=== PATIENT | female | born 1970 | race Caucasian/White ===

== ENCOUNTER → 2017-01-30 | Outpatient (CLI) | payer OTHER ==
--- NOTE | ~2017-01-30 | MR17 ---
[facility] A Service of [facility] & [facility] RADIOLOGY TEXT RESULTS PATIENT: KYLE DENG LOCATION: [facility] : 71 UNIT #: [id number] AGE: [address]: REANNA WHATLEY SEX: F ORDER DR: [id number] [facility] [address] [place], [place] [address] [id number] O MR#: [id number] Acc #: [id number] NAME: KYLE DENG : 1970 SEX: F STUDY DATE/TIME: 01/30/2017 10:06 UNIT: [facility] ROOM: STUDY DESCRIPTION: MR Brain WWo Contrast Attending Physician: Reanna Whatley M.D. Ordering Physician: Physician Non-Staff Primary Care Physician: Saadia Lino M.D. MRI CENTER REPORT This report is preliminary unless electronic signature is present. EXAM MRI of the brain with and without contrast dated 01/30/2017. COMPARISON None HISTORY Patient delivered child in 2010 and developed ARDS subsequently. Recently, patient started having syncope. History of Hodgkin lymphoma since 1991. FINDINGS Multisequence, multiplanar imaging of the brain was obtained with and without contrast. 20 mL of MultiHance was administered intravenously. No acute stroke, enhancing mass, mass effect, midline shift, or hydrocephalus. 1.1 cm oval increased T2-signal lesion is noted in the left periventricular parietal white matter. There is a lesion noted in the posterolateral aspect of the right cerebellar hemisphere, extending to the surface. It measures 1.6 x 1.6 cm. It contains a peripheral nonenhancing cystic component measuring 5.5 mm. No well-defined nodular enhancing component is associated with it. There are no older studies for comparison. Another smaller oval nonenhancing 1.0 x 0.7 cm lesion is in the superomedial left cerebellar hemisphere. No associated hemorrhage or calcification is seen. Thick slices through the sella with the pituitary gland, internal auditory canals with the inner ear structures, pineal region, and upper cervical spine do not demonstrate any obvious abnormality. 2-3 punctate hypointense gradient signal lesions are noted in the posterior right temporal cortex and subcortical white matter. They have no associated increased T2 signal with them and are nonspecific. There is no associated edema or enhancing nodular components. IMPRESSION 1. Increased T2-signal lesions are noted in bilateral cerebellar STS. [facility] A Service of [facility] RADIOLOGY TEXT RESULTS PATIENT: KYLE DENG LOCATION: [facility] : 71 UNIT #: [id number] AGE: [address]: REANNA WHATLEY SEX: F ORDER DR: hemisphere and in the left parietal periventricular white matter. The relatively larger one is in the right cerebellar hemisphere measuring 1.6 x 1.6 cm. These are probably related to old insult, however, given the larger size in the right cerebellar hemisphere with a smaller cystic component, a nonenhancing tumor cannot be completely excluded in a 46-year-old. Comparison with old studies and ensuring stability would be helpful. Without it, followup study is suggested in 6-12 months with and without contrast. 2. No abnormal enhancing lesions, hydrocephalus, acute stroke or midline shift is seen. 3. Not mentioned above, there is a less than 1 cm small focus of enhancement noted in the left cerebellar hemisphere (series 14, image 11). As it is not correlated in the axial postcontrast sequence, it is probably phase encoding artifact from the right the sigmoid sinus rather than a true lesion. Attention to this region is also suggested when subsequent followup study is obtained. Dictated by... Mayra Cheek M.D. THIS IS AN ELECTRONICALLY VERIFIED REPORT Mayra Cheek M.D. at 02/04/2017 5:28 PM CPR/tmw TD: 02/02/2017 16:36 JOB #: [id number] MRI CENTER REPORT Page 1 of 1 COPY
== END | disposition home or self-care (01) ==
LOC: CMRI 09:32
DX: R55 Syncope and collapse (principal); R42 Dizziness and giddiness; G93.89 Other specified disorders of brain
CPT/HCPCS: 70553; A9577